=== PATIENT | male | born 1960 | race Caucasian/White ===

== ENCOUNTER → 2020-05-08 | Outpatient (CLI) | payer OTHER ==
--- NOTE | 2020-05-08 08:53 | MR ---
EXAMINATION TYPE: MR knee RT wo con DATE OF EXAM: 05/08/2020 COMPARISON: None HISTORY: Right knee pain, instability TECHNIQUE: Multiplanar, multisequence imaging of the right knee is performed without IV contrast. FINDINGS: There is a large area of marrow edema or contusion involving the articular surface and medi al femoral condyle. No definite fracture line. Osteochondral defect in the differential diagnosis wit h microtrabecular fracture Due to motion assessment of the menisci are limited. Grossly there is suspicion for linear tear poste rior horn medial meniscus. Ligamentous structures including the ACL, PCL, medial collateral and lateral collateral ligaments int act. Popliteus tendon has a normal appearance. There is no evidence of popliteal fossa sizable cyst. Assessment patellar cartilage limited due to se leroy motion. There does appear to be thinning with there arthritic changes and narrowing the joint sp marcos but no erosive changes. Popliteus and quadriceps tendons grossly intact and there is a trace amou nt of fluid in the suprapatellar bursa. IMPRESSION: 1. Assessment of menisci limited due to motion. Suspicion for linear tear posterior horn medial menis cus. 2. Large area of marrow edema or contusion involving the articular surface and medial femoral condyle with a localized area of chondromalacia. Osteochondral chondritis with microtrabecular fracture in t he differential diagnosis.
== END | disposition home or self-care (01) ==
LOC: RADMRIMAIN 07:15
PROVIDERS: ATTEND Family Medicine
DX: S82.001A Unspecified fracture of right patella, initial encounter for closed fracture (principal); M93.262 Osteochondritis dissecans, left knee

== ENCOUNTER → 2020-10-20 | Outpatient (CLI) | payer OTHER ==
--- NOTE | 2020-10-21 14:14 | XR ---
EXAMINATION TYPE: XR ribs RT w pa chest x-ray DATE OF EXAM: 10/20/2020 CLINICAL HISTORY: Right rib injury at the mid right ribs after fall. TECHNIQUE: Multiple views of the right ribs and single PA view were obtained. COMPARISON: None FINDINGS: Technique is limited due to patient's positioning. Low lung volumes. Patient is slightly ro tated to the right. There is elevation of the right hemidiaphragm. No pneumothorax. No pleural effusi on or focal consolidation. Minimal linear atelectasis or scarring at the lung bases.. No definite dalia dence of right rib fracture. There is lumbar spinal hardware which is partially visualized. IMPRESSION: 1. No pneumothorax. Technique for evaluation of right rib fractures is limited due to patient positio n. No definite evidence of displaced rib fracture. 2. Minimal linear atelectasis or scarring at the lung bases. 3. Asymmetric elevation of the right hemidiaphragm.
== END | disposition home or self-care (01) ==
LOC: RADXRYALE 16:27
PROVIDERS: ATTEND Nurse Practitioner Family
DX: S29.9XXA Unspecified injury of thorax, initial encounter (principal); J98.6 Disorders of diaphragm; W19.XXXA Unspecified fall, initial encounter